=== PATIENT | female | born 1970 | race African-American/Black ===

== ENCOUNTER 2018-01-06 08:50 | Emergency (ER) | payer MEDICAID, OTHER ==
[~2018-01-06] VITALS: Ht 149.9 cm; Wt 65.8 kg
[2018-01-06 08:53] VITALS: BP 152/103
== END 2018-01-06 10:59 | disposition home or self-care (01) ==
LOC: EDBD 08:50 → ER 08:56
DX: S93.601A Unspecified sprain of right foot, initial encounter (principal); J45.909 Unspecified asthma, uncomplicated; I10 Essential (primary) hypertension; W01.0XXA Fall on same level from slipping, tripping and stumbling without subsequent striking against object, initial encounter; Y93.89 Activity, other specified; Y92.89 Other specified places as the place of occurrence of the external cause; Y99.8 Other external cause status
CPT/HCPCS: 73630

== ENCOUNTER 2022-05-12 18:58 | Emergency (ER) | payer MEDICAID, OTHER ==
[~2022-05-12] VITALS: Ht 147.3 cm; Wt 71.8 kg
[2022-05-12 19:35] VITALS: BP 123/72
== END 2022-05-12 22:25 | disposition left against medical advice (07) ==
LOC: ER 18:58
DX: M79.671 Pain in right foot (principal); Z53.21 Procedure and treatment not carried out due to patient leaving prior to being seen by health care provider